=== PATIENT | male | born 1935 | race Caucasian/White ===

== ENCOUNTER → 2016-12-15 | Outpatient (CLI) | payer MEDICARE, BC ==
[~2016-12-15] MED LIST: DOXA4TAB2; FINA5TAB; LEVO175T2; PRA40; [UNRECOGNIZED DRUG - CODE]
--- NOTE | 2016-12-15 09:36 | RADRPT ---
PROCEDURE: XR right knee CLINICAL INDICATION: Knee pain. TECHNIQUE: AP and lateral views are available for review. COMPARISON: No comparison available FINDINGS: There is a total knee replacement. There is no evidence of loosening of the prosthesis. The osseous structures are normal in mineralization, architecture and alignment No acute fracture or dislocation is seen.No osseous lesions are identified. The soft tissues are unremarkable . IMPRESSION: Unremarkable total knee replacement. RPTAT: [facility] .Trino Mcwilliams MD, MD Date Time Electronically viewed and signed by .Trino Mcwilliams MD, on 12/15/2016 09:35 .B/
--- NOTE | 2016-12-15 09:37 | RADRPT ---
PROCEDURE: XR left knee. CLINICAL INDICATION: Knee pain TECHNIQUE: AP weightbearing, PA weightbearing, lateral weight bearing and sunrise views are availa ble for review. COMPARISON: None available FINDINGS: There is severe osteoarthrosis involving the medial tibial femoral compartment and patellofemoral co mpartment and mild to moderate osteoarthrosis involving the lateral tibial femoral compartment. This is associated with joint space narrowing, subchondral sclerosis and osteophytosis. There is otherwise normal mineralization, architecture and alignment. No fractures are identified. No osseous lesions are identified. The soft tissues are unremarkable. IMPRESSION: Severe osteoarthrosis involving the medial tibial femoral compartment and patellofemoral compartment and mild to moderate osteoarthrosis involving the lateral tibial femoral compartment. RPTAT: [facility] .Trino Mcwilliams MD, Date Time Electronically viewed and signed by .Trino Mcwilliams MD, on 12/15/2016 09:37 .B/
== END | disposition home or self-care (01) ==
LOC: HKI 08:53
PROVIDERS: ATTEND Orthopaedic Surgery
DX: M17.12 Unilateral primary osteoarthritis, left knee (principal); Z96.651 Presence of right artificial knee joint
CPT/HCPCS: 20610; 73562; 73564; G0463; J7327